=== PATIENT | female | born 1940 | race Caucasian/White ===

== ENCOUNTER 2016-09-06 09:13 | Outpatient (CLI) | payer MEDICARE, OTHER ==
[2016-09-06] MEDS ORDERED: IOPAMIDOL-300 100 ML VIAL IVP ONE (11:10)
== END 2016-09-06 09:14 | disposition home or self-care (01) ==
DX: C76.0 Malignant neoplasm of head, face and neck (principal); J84.10 Pulmonary fibrosis, unspecified; M25.48 Effusion, other site; J32.8 Other chronic sinusitis
CPT/HCPCS: 36415; 70491; 71260; 80053; Q9967

== ENCOUNTER 2017-03-28 16:48 | Emergency (ER) | payer MEDICARE, OTHER ==
[2017-03-28 17:30] VITALS: BP 210/100
--- NOTE | 2017-03-28 17:39 | ED Physician Documentation ---
PD HPI UPPER EXT INJURY - Stated complaint Stated Complaint: GLF/L WRIST INJURY - Chief complaint Chief Complaint: Ext Problem - History obtained from History obtained from: Patient - History of Present Illness Location: Other (Slipping backwards fall catching herself with her left wrist and has significant left wrist pain although declines pain medication on initial evaluation. 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 INSTRUMENT REPAIRER: Mastectomy HEENT: Cataracts - Present Medications Home Medications: Ambulatory Orders Medication Instructions Recorded Confirmed Omeprazole [PriLOSEC] 20 mg PO DAILY 04/09/13 03/28/17 Docusate Sodium [Dss] 250 mg PO DAILY 01/06/17 03/28/17 Lutein/Zeaxanthin [Ocuvite Lutein 1 cap PO DAILY 01/06/17 03/28/17 25-5 mg Softgel] - Allergies Allergies/Adverse Reactions: Allergies Allergy/AdvReac Type Severity Reaction Status Date / Time No Known Drug Allergies Allergy Verified 03/28/17 17:30 - Social History Does the pt smoke?: No Smoking Status: Never smoker Does the pt drink ETOH?: Yes Does the pt have substance abuse?: No - Immunizations Immunizations: No immun PD ED PE NORMAL - Vitals Vital signs reviewed: Yes - General General: Alert and oriented X 3, No acute distress - Neck Neck: Supple, no meningeal sign, No bony TTP - Extremities Extremities: Other (She has a deformed left wrist consistent with a Colles' fracture, NVI in the hand. There is also some tenderness of the epicondyles of the elbow.) - Neuro Neuro: Alert and oriented X 3, Normal speech - Psych Psych: Normal mood, Normal affect Results - Vitals Vitals: Vital Signs - 24 hr 03/28/17 03/28/17 17:17 19:01 Temperature 36.2 C L 37.0 C Heart Rate 100 87 Respiratory 20 18 Rate Blood Pressure 210/100 H O2 Saturation 93 99 Oxygen O2 Source Room air - Rads (name of study) L elbow Radiology: EMP read contemporaneously (negative) L wrist Radiology: EMP read contemporaneously (Nondisplaced distal radius fracture) Procedures - Splint (location) L wrist and elbow Splint applied by: Physician Type of splint: Fiberglass, Long arm, Sugar tong Other: Patient tolerated well, No complications, Neurovascular intact. No: Sling provided (she had one) Departure - Departure Disposition: 01 Home, Self Care Clinical Impression: Colles' fracture of left radius Qualifiers: Encounter type: initial encounter Fracture type: closed Qualified Code(s): S52.532A - Colles' fracture of left radius, initial encounter for closed fracture Condition: Good Record reviewed to determine appropriate education?: Yes Instructions: ED Fx Forearm Radius Ulna No Redu Requ Follow-Up: [facility] [Provider Group] - Within 1 week Comments: Keep the splint on and dry, call the orthopedics office tomorrow for follow-up within the week. Your blood pressure was elevated today on check into the emergency department. This does not mean that you have hypertension, it is a common phenomenon to come to the emergency department and have elevated blood pressure. I recommend that she see her primary care physician within the week to have it rechecked when you are feeling better. Discharge Date/Time: 03/28/17 19:01
--- NOTE | 2017-03-28 18:28 | XRAY Preliminary Report ---
Exam: XR Wrist 3 View LT IMPRESSION: 1. Nondisplaced radial metaphyseal fracture. 2. Advanced degenerative changes noting first carpometacarpal joint subluxation. [facility] SITE ID: [id number]
--- NOTE | 2017-03-28 18:30 | XRAY Report ---
EXAM: LEFT WRIST RADIOGRAPHY EXAM DATE: 03/28/2017 06:20 PM. CLINICAL HISTORY: Fall, elbow/wrist inj. COMPARISON: None. TECHNIQUE: 3 views. FINDINGS: Bones: Osteopenia. There is a cortical irregularity dorsal aspect of the distal radius seen only on t he lateral view suspicious for fracture. A subtle transverse radial metaphyseal lucency is also seen. Joints: Severe degenerative changes at the first carpometacarpal joints with hypertrophic bony change s and joint subluxation. There are lesser degenerative changes involving the radiocarpal joints inclu ding chondrocalcinosis. Soft Tissues: Mild dorsal soft tissue swelling. IMPRESSION: 1. Nondisplaced radial metaphyseal fracture. 2. Advanced degenerative changes noting first carpometacarpal joint subluxation. [facility] Referring Provider Line: [phone] SITE ID: [id number]
--- NOTE | 2017-03-28 18:31 | XRAY Preliminary Report ---
Exam: XR Elbow 3 View LT IMPRESSION: No evidence of left elbow fracture. [facility] SITE ID: [id number]
--- NOTE | 2017-03-28 18:33 | XRAY Report ---
EXAM: LEFT ELBOW RADIOGRAPHY EXAM DATE: 03/28/2017 06:20 PM. CLINICAL HISTORY: Fall, elbow/wrist inj. COMPARISON: None. TECHNIQUE: 3 views. FINDINGS: Bones: Normal. No fractures or bone lesions. Joints: Normal. No effusion. No subluxation. Soft Tissues: Normal. No soft tissue swelling. IMPRESSION: No evidence of left elbow fracture. [facility] Referring Provider Line: [phone] SITE ID: [id number]
== END 2017-03-28 19:01 | disposition home or self-care (01) ==
LOC: ED 16:48
DX: S52.532A Colles' fracture of left radius, initial encounter for closed fracture (principal); W01.0XXA Fall on same level from slipping, tripping and stumbling without subsequent striking against object, initial encounter; Z85.3 Personal history of malignant neoplasm of breast; M81.0 Age-related osteoporosis without current pathological fracture; Z85.89 Personal history of malignant neoplasm of other organs and systems; Z90.10 Acquired absence of unspecified breast and nipple
CPT/HCPCS: 29505; 99283

== ENCOUNTER 2017-04-18 13:34 | Outpatient (CLI) | payer MEDICARE, OTHER ==
[2017-04-18 13:50] LABS: BASOPHILS % (AUTO) 0.4 %; EOSINOPHILS # (AUTO) 0.1 10^3/uL (0.0-0.7); EOSINOPHILS % (AUTO) 1.2 %; HCT - HEMATOCRIT 34.9 % (37.0-47.0); HGB - HEMOGLOBIN 11.7 g/dL (12.0-16.0); LYMPHOCYTES # (AUTO) 0.5 10^3/uL (1.5-3.5); LYMPHOCYTES % (AUTO) 8.6 %; MEAN CORPUSCULAR HEMOGLOBIN 26.6 pg (27.0-31.0); MEAN CORPUSCULAR HGB CONC 33.5 g/dL (32.0-36.0); MEAN CORPUSCULAR VOLUME 79.4 fL (81.0-99.0); MEAN PLATELET VOLUME 7.9 fL (7.9-10.8); MONOCYTES # (AUTO) 0.4 10^3/uL (0.0-1.0); NEUTROPHILS # (AUTO) 4.8 10^3/uL (1.5-6.6); NEUTROPHILS % (AUTO) 82.8 %; RED BLOOD COUNT 4.39 10^6/uL (4.20-5.40); RED CELL DISTRIBUTION WIDTH 16.2 % (12.0-15.0); UNCORRECTED WHITE BLOOD COUNT 5.8 x10^3/uL; WHITE BLOOD COUNT 5.8 x10^3/uL (4.8-10.8)
[2017-04-18 14:08] LABS: IRON 35 ug/dL (28-170); TOTAL IRON BINDING CAPACITY 440 ug/dL (250-450); TRANSFERRIN 314 mg/dL (192-382)
== END 2017-04-18 13:35 | disposition home or self-care (01) ==
LOC: LAB 13:34
PROVIDERS: ATTEND Internal Medicine Hematology & Oncology
DX: E61.1 Iron deficiency (principal); D75.9 Disease of blood and blood-forming organs, unspecified
CPT/HCPCS: 36415; 82728; 83540; 84466; 85025

== ENCOUNTER 2017-05-16 08:00 | Outpatient (CLI) | payer MEDICARE, OTHER ==
[2017-05-16 19:18] LABS: UNCORRECTED WHITE BLOOD COUNT 4.2 x10^3/uL; WHITE BLOOD COUNT 4.2 x10^3/uL (4.8-10.8)
[2017-05-16 19:20] LABS: BAND NEUTROPHILS % (MANUAL) 0 %
[2017-05-16 19:22] LABS: BASOPHILS % (AUTO) 0.2 %; EOSINOPHILS % (AUTO) 1.3 %; HCT - HEMATOCRIT 38.5 % (37.0-47.0); HGB - HEMOGLOBIN 12.7 g/dL (12.0-16.0); MEAN CORPUSCULAR HEMOGLOBIN 27.3 pg (27.0-31.0); MEAN CORPUSCULAR HGB CONC 33.1 g/dL (32.0-36.0); MEAN CORPUSCULAR VOLUME 82.7 fL (81.0-99.0); MONOCYTES % (AUTO) 8.3 %; NEUTROPHILS % (AUTO) 80.2 %; RED BLOOD COUNT 4.66 10^6/uL (4.20-5.40); RED CELL DISTRIBUTION WIDTH 16.8 % (12.0-15.0)
[2017-05-16 19:43] LABS: ALBUMIN/GLOBULIN RATIO 1.3 (1.0-2.2); BILIRUBIN,TOTAL 0.6 mg/dL (0.2-1.0); CALCIUM 9.2 mg/dL (8.5-10.3); CREATININE 0.5 mg/dL (0.4-1.0); POTASSIUM 4.5 mmol/L (3.5-5.0); TOTAL PROTEIN 7.2 g/dL (6.7-8.2)
[2017-05-16 20:32] LABS: BASOPHILS % (MANUAL) 1 %; EOSINOPHILS % (MANUAL) 2 %; LYMPHOCYTES % (MANUAL) 5 %; NEUTROPHILS % (MANUAL) 86 %; TOTAL CELLS COUNTED 100
[2017-05-16 20:35] LABS: PLATELET ESTIMATE, MANUAL DECREASED (<130,000) (NORMAL); PLATELET MORPHOLOGY 1+ GIANT PLATELETS (NORMAL)
[2017-05-16 20:36] LABS: NP AUTO DIFFERENTIAL? YES; NP MAN DIFFERENTIAL? NO
== END 2017-05-16 08:01 | disposition home or self-care (01) ==
LOC: LAB.WCP 08:00
PROVIDERS: ATTEND Internal Medicine Hematology & Oncology
DX: E61.1 Iron deficiency (principal); C76.0 Malignant neoplasm of head, face and neck
CPT/HCPCS: 36415; 80053; 83540; 84466; 85025

== ENCOUNTER 2017-06-21 14:26 | Outpatient (CLI) | payer MEDICARE, OTHER ==
[2017-06-21 15:15] LABS: BASOPHILS % (AUTO) 0.3 %; EOSINOPHILS # (AUTO) 0.1 10^3/uL (0.0-0.7); EOSINOPHILS % (AUTO) 1.3 %; HGB - HEMOGLOBIN 11.8 g/dL (12.0-16.0); LYMPHOCYTES # (AUTO) 0.4 10^3/uL (1.5-3.5); LYMPHOCYTES % (AUTO) 8.6 %; MEAN CORPUSCULAR HEMOGLOBIN 27.6 pg (27.0-31.0); MEAN CORPUSCULAR HGB CONC 33.7 g/dL (32.0-36.0); MEAN PLATELET VOLUME 8.1 fL (7.9-10.8); MONOCYTES # (AUTO) 0.3 10^3/uL (0.0-1.0); MONOCYTES % (AUTO) 6.6 %; NEUTROPHILS # (AUTO) 3.9 10^3/uL (1.5-6.6); NEUTROPHILS % (AUTO) 83.2 %; RED BLOOD COUNT 4.27 10^6/uL (4.20-5.40); UNCORRECTED WHITE BLOOD COUNT 4.7 x10^3/uL; WHITE BLOOD COUNT 4.7 x10^3/uL (4.8-10.8)
[2017-06-21 15:32] LABS: IRON 63 ug/dL (28-170); TOTAL IRON BINDING CAPACITY 416 ug/dL (250-450); TRANSFERRIN 297 mg/dL (192-382)
[2017-06-21 16:11] LABS: THYROID STIMULATING HORMONE 13.92 uIU/mL (0.34-5.60)
[2017-06-23 19:21] LABS: ALPHA 1 GLOBULIN 0.3 g/dL (0.2-0.3); ALPHA 2 GLOBULIN 0.8 g/dL (0.5-0.9); BETA 1 GLOBULIN 0.5 g/dL (0.4-0.6); BETA 2 GLOBULIN 0.3 g/dL (0.2-0.5); GAMMA GLOBULIN 0.8 g/dL (0.8-1.7)
== END 2017-06-21 14:27 | disposition home or self-care (01) ==
LOC: LAB 14:26
PROVIDERS: ATTEND Internal Medicine Hematology & Oncology
DX: D75.9 Disease of blood and blood-forming organs, unspecified (principal); E61.1 Iron deficiency
CPT/HCPCS: 82607; 82747; 83540; 84155; 84165; 84443; 84466; 85025; 86430; 87798

== ENCOUNTER 2017-08-04 09:58 | Outpatient (CLI) | payer MEDICARE, OTHER ==
--- NOTE | 2017-08-04 15:42 | XRAY Report ---
EXAM: LEFT KNEE RADIOGRAPHY EXAM DATE: 08/04/2017 10:08 AM. CLINICAL HISTORY: LET KNEE PAIN. COMPARISON: 02/28/2014. TECHNIQUE: 3 views. FINDINGS: Bones: Diffuse bony demineralization. No acute fracture identified. Chronic appearing deformity invol ving the proximal tibia with medial downsloping again noted. Interval healing of previous comminuted fractures. Overall stable appearing alignment. Joints: No dislocation. Moderate tricompartmental degenerative change appears most prominent at the m edial femorotibial joint space. Small amount of ill-defined density along the joint space that may re flect chondrocalcinosis. Small amount of density in the suprapatellar region. Soft Tissues: No radiopaque foreign body. Soft tissue swelling. IMPRESSION: 1. No acute fracture or dislocation identified. 2. Chronic deformity of the knee with medial downsloping along the medial proximal tibia again noted. Interval healing of previous fractures. 3. Moderate tricompartmental degenerative changes, most notably at the medial femorotibial joint spac e. 4. Small amount of density along the joint space that may reflect chondrocalcinosis. 5. Mild density in the suprapatellar region, likely a small effusion. [facility] Referring Provider Line: [phone] SITE ID: [id number]
== END 2017-08-04 09:59 | disposition home or self-care (01) ==
LOC: DI.N 09:58
PROVIDERS: ATTEND Orthopaedic Surgery
DX: M21.862 Other specified acquired deformities of left lower leg (principal); M17.12 Unilateral primary osteoarthritis, left knee

== ENCOUNTER 2017-08-25 13:18 | Outpatient (CLI) | payer MEDICARE, OTHER ==
[2017-08-25 14:06] LABS: % IRON SATURATION 9 % (20-50); IRON 35 ug/dL (28-170); TOTAL IRON BINDING CAPACITY 400 ug/dL (250-450); TRANSFERRIN 286 mg/dL (192-382)
[2017-08-25 14:08] LABS: BASOPHILS % (AUTO) 0.4 %; EOSINOPHILS # (AUTO) 0.1 10^3/uL (0.0-0.7); EOSINOPHILS % (AUTO) 1.2 %; HGB - HEMOGLOBIN 12.1 g/dL (12.0-16.0); LYMPHOCYTES # (AUTO) 0.3 10^3/uL (1.5-3.5); LYMPHOCYTES % (AUTO) 5.4 %; MEAN CORPUSCULAR HEMOGLOBIN 27.2 pg (27.0-31.0); MEAN CORPUSCULAR VOLUME 79.8 fL (81.0-99.0); MEAN PLATELET VOLUME 8.8 fL (7.9-10.8); MONOCYTES # (AUTO) 0.3 10^3/uL (0.0-1.0); MONOCYTES % (AUTO) 5.3 %; NEUTROPHILS # (AUTO) 5.6 10^3/uL (1.5-6.6); NEUTROPHILS % (AUTO) 87.7 %; PLT - PLATELET COUNT 129 10^3/uL (130-450); RED BLOOD COUNT 4.44 10^6/uL (4.20-5.40); RED CELL DISTRIBUTION WIDTH 15.4 % (12.0-15.0); WHITE BLOOD COUNT 6.3 x10^3/uL (4.8-10.8)
== END 2017-08-25 13:19 | disposition home or self-care (01) ==
LOC: LAB 13:18
PROVIDERS: ATTEND Internal Medicine Hematology & Oncology
DX: E61.1 Iron deficiency (principal); D69.6 Thrombocytopenia, unspecified
CPT/HCPCS: 36415; 82728; 83540; 84466; 85025

== ENCOUNTER 2017-10-17 08:00 | Outpatient (CLI) | payer MEDICARE, OTHER | END 2017-10-17 08:01 | disposition home or self-care (01) | LOC: LAB.R 08:00 | PROVIDERS: ATTEND Physician Assistant Medical | DX: N39.0 Urinary tract infection, site not specified (principal) | CPT/HCPCS: 87077; 87086 ==

== ENCOUNTER 2017-10-24 20:09 | Outpatient (CLI) | payer MEDICARE, OTHER ==
[2017-10-24 19:15] LABS: BILIRUBIN,URINE NEGATIVE (NEGATIVE); GLUCOSE, URINE (UA) NEGATIVE (NEGATIVE); KETONES,URINE (UA) NEGATIVE (NEGATIVE); LEUKOCYTE ESTERASE, URINE NEGATIVE (NEGATIVE); NITRITE,URINE NEGATIVE (NEGATIVE); OCCULT BLOOD,URINE NEGATIVE (NEGATIVE); PH,URINE 6.5 PH (5.0-7.5); PROTEIN,URINE NEGATIVE (NEGATIVE); UROBILINOGEN,URINE 0.2 (NORMAL) E.U./dL (NORMAL)
[2017-10-24 19:20] LABS: BACTERIA,URINE Rare /HPF (None Seen); CLARITY,URINE CLEAR (CLEAR); RBC,URINE 0-5 /HPF (0-5); SQUAMOUS EPITHELIAL CELL,UR RARE Squamous (<= Few)
== END 2017-10-24 20:10 | disposition home or self-care (01) ==
LOC: LAB.R 20:09
PROVIDERS: ATTEND Physician Assistant Medical
DX: N39.0 Urinary tract infection, site not specified (principal)
CPT/HCPCS: 81001; 87086

== ENCOUNTER 2017-12-21 08:41 | Outpatient (CLI) | payer MEDICARE, OTHER ==
[2017-12-21 13:48] LABS: BASOPHILS % (AUTO) 0.3 %; EOSINOPHILS % (AUTO) 0.4 %; LYMPHOCYTES # (AUTO) 0.1 10^3/uL (1.5-3.5); LYMPHOCYTES % (AUTO) 1.3 %; MEAN CORPUSCULAR HEMOGLOBIN 23.8 pg (27.0-31.0); MEAN CORPUSCULAR HGB CONC 32.4 g/dL (32.0-36.0); MEAN CORPUSCULAR VOLUME 73.6 fL (81.0-99.0); MEAN PLATELET VOLUME 8.4 fL (7.9-10.8); MONOCYTES # (AUTO) 0.4 10^3/uL (0.0-1.0); MONOCYTES % (AUTO) 3.6 %; NEUTROPHILS # (AUTO) 10.2 10^3/uL (1.5-6.6); NEUTROPHILS % (AUTO) 94.4 %; PLT - PLATELET COUNT 249 10^3/uL (130-450); RED BLOOD COUNT 4.18 10^6/uL (4.20-5.40); RED CELL DISTRIBUTION WIDTH 17.7 % (12.0-15.0); WHITE BLOOD COUNT 10.8 x10^3/uL (4.8-10.8)
[2017-12-21 14:16] LABS: % IRON SATURATION 6 % (20-50); IRON 20 ug/dL (28-170); TOTAL IRON BINDING CAPACITY 340 ug/dL (250-450); TRANSFERRIN 243 mg/dL (192-382)
== END 2017-12-21 08:42 | disposition home or self-care (01) ==
LOC: LAB.N 08:41
PROVIDERS: ATTEND Internal Medicine Hematology & Oncology
DX: E61.1 Iron deficiency (principal); D69.6 Thrombocytopenia, unspecified; C76.0 Malignant neoplasm of head, face and neck
CPT/HCPCS: 36415; 82728; 83540; 84466; 85025

== ENCOUNTER 2018-01-11 08:00 | Outpatient (CLI) | payer MEDICARE, OTHER ==
[2018-01-11 19:15] LABS: % IRON SATURATION 4 % (20-50); IRON 12 ug/dL (28-170); TOTAL IRON BINDING CAPACITY 293 ug/dL (250-450); TRANSFERRIN 209 mg/dL (192-382)
== END 2018-01-11 08:01 | disposition home or self-care (01) ==
LOC: LAB.N 08:00
PROVIDERS: ATTEND Internal Medicine Hematology & Oncology
DX: E61.1 Iron deficiency (principal); D69.6 Thrombocytopenia, unspecified
CPT/HCPCS: 36415; 82728; 83540; 84466

== ENCOUNTER 2018-02-17 15:38 | Outpatient (CLI) | payer MEDICARE, OTHER ==
[2018-02-17 18:36] LABS: BASOPHILS % (AUTO) 0.4 %; EOSINOPHILS # (AUTO) 0.1 10^3/uL (0.0-0.7); EOSINOPHILS % (AUTO) 1.7 %; HGB - HEMOGLOBIN 7.9 g/dL (12.0-16.0); LYMPHOCYTES # (AUTO) 0.2 10^3/uL (1.5-3.5); LYMPHOCYTES % (AUTO) 3.6 %; MEAN CORPUSCULAR HEMOGLOBIN 21.7 pg (27.0-31.0); MEAN CORPUSCULAR HGB CONC 31.2 g/dL (32.0-36.0); MEAN CORPUSCULAR VOLUME 69.5 fL (81.0-99.0); MEAN PLATELET VOLUME 9.3 fL (7.9-10.8); MONOCYTES # (AUTO) 0.4 10^3/uL (0.0-1.0); MONOCYTES % (AUTO) 5.6 %; NEUTROPHILS # (AUTO) 5.8 10^3/uL (1.5-6.6); NEUTROPHILS % (AUTO) 88.7 %; PLT - PLATELET COUNT 173 10^3/uL (130-450); RED BLOOD COUNT 3.65 10^6/uL (4.20-5.40); RED CELL DISTRIBUTION WIDTH 18.8 % (12.0-15.0); WHITE BLOOD COUNT 6.5 x10^3/uL (4.8-10.8)
[2018-02-17 18:55] LABS: BILIRUBIN,TOTAL 0.4 mg/dL (0.2-1.0); CALCIUM 8.4 mg/dL (8.5-10.3); CREATININE 0.5 mg/dL (0.4-1.0)
== END 2018-02-17 15:39 | disposition home or self-care (01) ==
LOC: LAB.WCP 15:38
PROVIDERS: ATTEND Family Medicine
DX: R60.0 Localized edema (principal)
CPT/HCPCS: 36415; 80053; 84134; 85025

== ENCOUNTER 2018-02-20 10:42 | Outpatient (CLI) | payer MEDICARE, OTHER ==
[2018-02-20] MEDS ORDERED: IOPAMIDOL-300 100 ML VIAL ONE (11:18)
[2018-02-20] MEDS ORDERED: IOPAMIDOL-300 100 ML VIAL IVP ONE (11:38)
--- NOTE | 2018-02-20 13:52 | CT Report ---
Procedure Date: 02/20/2018 Accession Number: [id number] / [id number] Procedure: CT - Neck Soft Tissue W/ CPT Code: FULL RESULT: EXAM: Neck Soft Tissue W/ DATE: 02/20/2018 11:35 AM CLINICAL HISTORY: HEAD AND NECK CANCER COMPARISON: 09/06/2016 TECHNIQUE: Routine soft tissue neck CT protocol. IV contrast: 80 mL Isovue 300 Reconstructions: Coronal and sagittal. In accordance with CT protocol optimization, one or more of the following dose reduction techniques were utilized for this exam: automated exposure control, adjustment of mA and/or KV based on patient size, or use of iterative reconstructive technique. FINDINGS: Bones: Normal. No fractures, bone lesions or degenerative changes. Glands: There is asymmetry of the soft tissues of the hypopharynx, stable. No discrete mass is identified. Soft Tissues: Normal. No adenopathy, abscess, or mass. No airway narrowing. No foreign bodies identified. Other: Please refer to separate chest CT. Right upper lobe nodule, better seen on chest CT. IMPRESSION: Stable asymmetry of the soft tissues in the hypopharynx, likely postoperative in etiology. No adenopathy. [facility]
--- NOTE | 2018-02-20 13:53 | CT Report ---
Procedure Date: 02/20/2018 Accession Number: [id number] / [id number] Procedure: CT - Chest W/ CPT Code: FULL RESULT: EXAM: Chest W/ DATE: 02/20/2018 11:35 AM CLINICAL HISTORY: HEAD AND NECK CANCER COMPARISON: None. TECHNIQUE: Routine helical CT imaging was performed through the chest. IV contrast: None. Reconstructions: Coronal and sagittal. In accordance with CT protocol optimization, one or more of the following dose reduction techniques were utilized for this exam: automated exposure control, adjustment of mA and/or KV based on patient size, or use of iterative reconstructive technique. FINDINGS: Lungs/Pleura: No nodules, bronchial thickening, consolidation, or edema. Pulmonary vasculature is normal. No pericardial or pleural effusion. No pneumothorax. Mediastinum: Normal. No adenopathy or masses. The heart and great vessels are normal. Bones: Unremarkable. Visualized Abdomen: Unremarkable. Other: None. IMPRESSION: Normal chest CT. [facility]
== END 2018-02-20 10:43 | disposition home or self-care (01) ==
LOC: DI 10:42
PROVIDERS: ATTEND Internal Medicine Hematology & Oncology
DX: C76.0 Malignant neoplasm of head, face and neck (principal); R91.1 Solitary pulmonary nodule; J98.19 Other pulmonary collapse; R18.8 Other ascites; K74.60 Unspecified cirrhosis of liver
CPT/HCPCS: 70491; 71260; Q9967

== ENCOUNTER 2018-02-28 08:00 | Outpatient (CLI) | payer MEDICARE, OTHER ==
[2018-02-28 19:45] LABS: CALCIUM 8.8 mg/dL (8.5-10.3); CREATININE 0.6 mg/dL (0.4-1.0)
== END 2018-02-28 08:01 | disposition home or self-care (01) ==
LOC: LAB.WCP 08:00
PROVIDERS: ATTEND Physician Assistant Medical
DX: R60.0 Localized edema (principal)
CPT/HCPCS: 36415; 80048

== ENCOUNTER 2018-03-01 08:00 | Outpatient (CLI) | payer MEDICARE, OTHER ==
[2018-03-01 19:01] LABS: BASOPHILS % (AUTO) 0.4 %; EOSINOPHILS % (AUTO) 0.6 %; LYMPHOCYTES # (AUTO) 0.2 10^3/uL (1.5-3.5); LYMPHOCYTES % (AUTO) 3.1 %; MEAN CORPUSCULAR HEMOGLOBIN 21.6 pg (27.0-31.0); MEAN CORPUSCULAR HGB CONC 30.8 g/dL (32.0-36.0); MEAN CORPUSCULAR VOLUME 70.1 fL (81.0-99.0); MEAN PLATELET VOLUME 9.1 fL (7.9-10.8); MONOCYTES # (AUTO) 0.4 10^3/uL (0.0-1.0); MONOCYTES % (AUTO) 6.3 %; NEUTROPHILS # (AUTO) 5.8 10^3/uL (1.5-6.6); NEUTROPHILS % (AUTO) 89.6 %; PLT - PLATELET COUNT 195 10^3/uL (130-450); RED BLOOD COUNT 3.72 10^6/uL (4.20-5.40); RED CELL DISTRIBUTION WIDTH 19.3 % (12.0-15.0); WHITE BLOOD COUNT 6.5 x10^3/uL (4.8-10.8)
[2018-03-01 19:40] LABS: % IRON SATURATION 5 % (20-50); IRON 18 ug/dL (28-170); TOTAL IRON BINDING CAPACITY 371 ug/dL (250-450); TRANSFERRIN 265 mg/dL (192-382)
[2018-03-01 19:49] LABS: ALBUMIN/GLOBULIN RATIO 0.9 (1.0-2.2); BILIRUBIN,TOTAL 0.6 mg/dL (0.2-1.0); CALCIUM 8.6 mg/dL (8.5-10.3); CREATININE 0.5 mg/dL (0.4-1.0); TOTAL PROTEIN 6.3 g/dL (6.7-8.2)
== END 2018-03-01 08:01 | disposition home or self-care (01) ==
LOC: LAB.WCP 08:00
PROVIDERS: ATTEND Physician Assistant Medical
DX: D50.9 Iron deficiency anemia, unspecified (principal)
CPT/HCPCS: 36415; 80053; 82728; 83540; 84466; 85025

== ENCOUNTER 2018-03-07 10:53 | Outpatient (CLI) | payer MEDICARE, OTHER | END 2018-03-07 10:54 | disposition home or self-care (01) | LOC: DI 10:53 | PROVIDERS: ATTEND Physician Assistant Medical | DX: R60.0 Localized edema (principal); I51.7 Cardiomegaly | CPT/HCPCS: 93306 ==

== ENCOUNTER 2018-03-13 12:38 | Outpatient (CLI) | payer MEDICARE, OTHER ==
--- NOTE | 2018-03-13 14:03 | Ultrasound Report ---
Procedure Date: 03/13/2018 Accession Number: [id number] / [id number] Procedure: US - Duplex Ext Veins Bilateral CPT Code: FULL RESULT: EXAM: Duplex Ext Veins Bilateral DATE: 03/13/2018 1:36 PM CLINICAL HISTORY: EDEMA LEG COMPARISON: None. TECHNIQUE: Real-time sonographic vascular imaging was performed by the database marketing specialist through the lower extremities utilizing both color-flow and Doppler spectral analysis. Multiple accounts receivable representative static images were saved for review. FINDINGS: Right: Common Femoral Vein (CFV): Normal. [Profunda Femoral Vein (PFV): Normal. Superficial Femoral Vein (SFV) Prox: Normal. Superficial Femoral Vein (SFV) Mid: Normal. Superficial Femoral Vein (SFV) Dist: Normal. Popliteal Vein: Normal. Posterior Tibial Veins: Normal. Peroneal Veins: Normal. Left: Common Femoral Vein (CFV): Normal. [Profunda Femoral Vein (PFV): Normal. Superficial Femoral Vein (SFV) Prox: Normal. Superficial Femoral Vein (SFV) Mid: Normal. Superficial Femoral Vein: (SFV) Dist: Normal. Popliteal Vein: Normal. Posterior Tibial Veins: Normal. Peroneal Veins: Normal. Other: Bilateral superficial soft tissue edema is noted. IMPRESSION: Bilateral superficial soft tissue edema with no sonographic evidence of DVT in either lower extremity. [facility]
== END 2018-03-13 12:39 | disposition home or self-care (01) ==
LOC: DI 12:38
PROVIDERS: ATTEND Physician Assistant Medical
DX: R60.0 Localized edema (principal)
CPT/HCPCS: 93970

== ENCOUNTER 2018-03-30 09:39 | Outpatient (CLI) | payer MEDICARE, OTHER ==
[2018-03-30 12:42] LABS: BASOPHILS % (AUTO) 0.3 %; EOSINOPHILS % (AUTO) 0.4 %; HGB - HEMOGLOBIN 8.1 g/dL (12.0-16.0); LYMPHOCYTES # (AUTO) 0.2 10^3/uL (1.5-3.5); LYMPHOCYTES % (AUTO) 2.3 %; MEAN CORPUSCULAR HEMOGLOBIN 22.3 pg (27.0-31.0); MEAN CORPUSCULAR HGB CONC 31.8 g/dL (32.0-36.0); MEAN CORPUSCULAR VOLUME 70.2 fL (81.0-99.0); MEAN PLATELET VOLUME 9.1 fL (7.9-10.8); MONOCYTES # (AUTO) 0.5 10^3/uL (0.0-1.0); MONOCYTES % (AUTO) 5.8 %; NEUTROPHILS # (AUTO) 7.2 10^3/uL (1.5-6.6); NEUTROPHILS % (AUTO) 91.2 %; PLT - PLATELET COUNT 199 10^3/uL (130-450); RED BLOOD COUNT 3.64 10^6/uL (4.20-5.40); RED CELL DISTRIBUTION WIDTH 19.6 % (12.0-15.0); WHITE BLOOD COUNT 7.9 x10^3/uL (4.8-10.8)
== END 2018-03-30 09:40 | disposition home or self-care (01) ==
LOC: LAB.N 09:39
PROVIDERS: ATTEND Internal Medicine Hematology & Oncology
DX: C76.0 Malignant neoplasm of head, face and neck (principal)
CPT/HCPCS: 36415; 85025

== ENCOUNTER 2018-04-06 11:01 | Outpatient (CLI) | payer MEDICARE, OTHER ==
[2018-04-06 19:24] LABS: BASOPHILS % (AUTO) 0.4 %; EOSINOPHILS % (AUTO) 0.3 %; LYMPHOCYTES # (AUTO) 0.2 10^3/uL (1.5-3.5); LYMPHOCYTES % (AUTO) 2.5 %; MEAN CORPUSCULAR HGB CONC 31.5 g/dL (32.0-36.0); MEAN PLATELET VOLUME 9.6 fL (7.9-10.8); MONOCYTES # (AUTO) 0.5 10^3/uL (0.0-1.0); MONOCYTES % (AUTO) 5.5 %; NEUTROPHILS # (AUTO) 8.2 10^3/uL (1.5-6.6); NEUTROPHILS % (AUTO) 91.3 %; PLT - PLATELET COUNT 180 10^3/uL (130-450); RED BLOOD COUNT 3.74 10^6/uL (4.20-5.40); RED CELL DISTRIBUTION WIDTH 31.1 % (12.0-15.0)
[2018-04-06 19:46] LABS: PLATELET ESTIMATE, MANUAL NORMAL (130-450,000) (NORMAL); PLATELET MORPHOLOGY NORMAL APPEARANCE (NORMAL)
== END 2018-04-06 11:02 | disposition home or self-care (01) ==
LOC: LAB.N 11:01
PROVIDERS: ATTEND Internal Medicine Hematology & Oncology
DX: C76.0 Malignant neoplasm of head, face and neck (principal)
CPT/HCPCS: 36415; 85025

== ENCOUNTER 2018-04-11 09:53 | Outpatient (CLI) | payer MEDICARE, OTHER ==
[2018-04-11 12:38] LABS: BASOPHILS % (AUTO) 0.2 %; EOSINOPHILS % (AUTO) 0.3 %; HGB - HEMOGLOBIN 9.2 g/dL (12.0-16.0); LYMPHOCYTES # (AUTO) 0.1 10^3/uL (1.5-3.5); LYMPHOCYTES % (AUTO) 1.4 %; MEAN CORPUSCULAR HEMOGLOBIN 24.6 pg (27.0-31.0); MEAN CORPUSCULAR HGB CONC 32.2 g/dL (32.0-36.0); MEAN CORPUSCULAR VOLUME 76.4 fL (81.0-99.0); MEAN PLATELET VOLUME 9.5 fL (7.9-10.8); MONOCYTES # (AUTO) 0.4 10^3/uL (0.0-1.0); MONOCYTES % (AUTO) 4.6 %; NEUTROPHILS % (AUTO) 93.5 %; PLT - PLATELET COUNT 173 10^3/uL (130-450); RED BLOOD COUNT 3.75 10^6/uL (4.20-5.40); RED CELL DISTRIBUTION WIDTH 31.1 % (12.0-15.0); WHITE BLOOD COUNT 8.6 x10^3/uL (4.8-10.8)
[2018-04-11 13:02] LABS: PLATELET MORPHOLOGY NORMAL APPEARANCE (NORMAL)
[2018-04-11 13:03] LABS: PLATELET ESTIMATE, MANUAL NORMAL (130-450,000) (NORMAL)
[2018-04-11 13:40] LABS: ALBUMIN 2.7 g/dL (3.2-5.5); ALBUMIN/GLOBULIN RATIO 0.8 (1.0-2.2); BILIRUBIN,TOTAL 0.7 mg/dL (0.2-1.0); CALCIUM 9.2 mg/dL (8.5-10.3); CREATININE 0.7 mg/dL (0.4-1.0)
== END 2018-04-11 09:54 | disposition home or self-care (01) ==
LOC: LAB.N 09:53
PROVIDERS: ATTEND Internal Medicine Hematology & Oncology
DX: C76.0 Malignant neoplasm of head, face and neck (principal)
CPT/HCPCS: 36415; 80053; 82728; 83540; 84466; 85025

== ENCOUNTER 2018-04-13 12:12 | Outpatient (CLI) | payer MEDICARE, OTHER ==
--- NOTE | 2018-04-13 13:57 | XRAY Report ---
Reason: ABDOMINAL BLOATING Procedure Date: 04/13/2018 Accession Number: [id number] / [id number] Procedure: XR - Abdomen Acute CPT Code: FULL RESULT: EXAM: ABDOMINAL SERIES AND PA CHEST EXAM DATE: 04/13/2018 12:31 PM. CLINICAL HISTORY: Bloating. COMPARISON: Chest dated 02/18/2007. TECHNIQUE: 2 views abdomen and 1 view chest. FINDINGS: CHEST: Lungs/Pleura: Large masslike density projecting over left mid to lower lung zone and obscuring the heart border, measuring about 9 cm. Irregular masslike density projecting into the right mid to upper lung zone measuring together about 3 x 6 cm. Patchy infiltration or atelectasis in the right lung base. No definite effusion or pneumothorax. Mediastinum: Normal heart size. Upper lobe vessels not distended. ABDOMEN: Bowel Gas Pattern: Scattered collections of bowel gas throughout the abdomen with no focal dilation. [id number] amount of stool. Increased density in lower pelvis, probably distended bladder versus mass. Free Air: None. Other: Left Port-A-Cath. Osteopenia, degenerative changes. IMPRESSION: 1. Chest findings as described; correlation with current cT scan is recommended. 2. Nonspecific bowel gas pattern with small to moderate amount of stool. 3. Increased density in lower pelvis, bladder versus mass. [facility]
== END 2018-04-13 12:13 | disposition home or self-care (01) ==
LOC: DI 12:12
PROVIDERS: ATTEND Physician Assistant Medical
DX: R14.0 Abdominal distension (gaseous) (principal)
CPT/HCPCS: 74022